=== PATIENT | male | born 1985 | race African-American/Black ===

== ENCOUNTER 2022-04-23 13:38 | Emergency (ER) | payer MEDICAID, OTHER ==
[~2022-04-23] VITALS: Ht 170.2 cm; Wt 94.0 kg
[2022-04-23 16:45] VITALS: BP 158/83
[2022-04-23] MEDS ORDERED: ACETAMINOPHEN 325MG TABLET PO NR (16:45)
[2022-04-23] MEDS ORDERED: IBUPROFEN 400MG TABLET PO NR (16:45)
[2022-04-23] MEDS ORDERED: IBUPROFEN 400MG TABLET PO ONE (16:45)
[2022-04-23] MEDS ORDERED: ACETAMINOPHEN 325MG TABLET PO ONE (16:45)
[2022-04-23] MEDS ORDERED: KETOROLAC 60MG/2ML VIAL IM ONE (19:45)
[2022-04-23] MEDS ORDERED: IBUP-2028 MT (20:20)
== END 2022-04-23 21:00 | disposition home or self-care (01) ==
LOC: ER 13:38
DX: S86.011A Strain of right Achilles tendon, initial encounter (principal); X58.XXXA Exposure to other specified factors, initial encounter; Y93.41 Activity, dancing; Y92.018 Other place in single-family (private) house as the place of occurrence of the external cause
CPT/HCPCS: 29515; 73610; 76881; 96372; 99284; J1885

== ENCOUNTER 2023-07-21 18:26 | Emergency (ER) | payer MEDICAID ==
[~2023-07-21] VITALS: Ht 182.9 cm; Wt 107.0 kg
[~2023-07-21 18:26] MED LIST: IBUP-2028 MT
[2023-07-21 18:51] VITALS: O2SAT 97
[2023-07-21] MEDS: KETOROLAC 15MG/ML VIAL IM ONE (21:12)
[2023-07-21 21:15] VITALS: BP 146/78; PULSE 72; RESP 14; TEMP 97.6
[2023-07-21] MEDS ORDERED: LIDO700A15 TP (21:18)
[2023-07-21] MEDS ORDERED: NAPR-1176 MT (21:18)
== END 2023-07-21 21:25 | disposition home or self-care (01) ==
LOC: ER 19:09
DX: S06.0X0A Concussion without loss of consciousness, initial encounter (principal); M25.552 Pain in left hip; M25.512 Pain in left shoulder; V49.49XA Driver injured in collision with other motor vehicles in traffic accident, initial encounter; Y93.89 Activity, other specified; Y92.89 Other specified places as the place of occurrence of the external cause; Y99.8 Other external cause status
CPT/HCPCS: 99285; 70450; 96372; J1885

== ENCOUNTER 2025-03-07 09:56 | Emergency (ER) | payer MEDICAID ==
[~2025-03-07] VITALS: Ht 170.2 cm; Wt 100.0 kg
[~2025-03-07 09:56] MED LIST changes: +LIDO-53 TP; +NAPR-1176 MT
[2025-03-07 10:12] VITALS: O2SAT 100
[2025-03-07 10:13] VITALS: BP 131/75; PULSE 70; RESP 16; TEMP 36.8; O2SAT 100
[2025-03-07] MEDS: ACETAMINOPHEN 500MG TABLET PO ONE (10:40)
[2025-03-07] MEDS ORDERED: IBUP-2028 MT (11:30)
== END 2025-03-07 12:34 | disposition home or self-care (01) ==
LOC: ER 09:56
DX: S62.325A Displaced fracture of shaft of fourth metacarpal bone, left hand, initial encounter for closed fracture (principal); Z79.1 Long term (current) use of non-steroidal anti-inflammatories (NSAID); Z79.899 Other long term (current) drug therapy; X58.XXXA Exposure to other specified factors, initial encounter; Y93.89 Activity, other specified; Y92.89 Other specified places as the place of occurrence of the external cause; Y99.8 Other external cause status
CPT/HCPCS: 99283; 73130; 29125; A6449